=== PATIENT | female | born 1990 | race African-American/Black ===

== ENCOUNTER 2019-06-19 08:19 | Inpatient (IN) ==
[2019-06-19] MEDS ORDERED: FAMOTIDINE 20 MG/2 ML VIAL IV ONE (08:34)
[2019-06-19] MEDS ORDERED: ceFAZolin 2,000 MG in PREMIX 1 EACH IV ONE (08:34)
[2019-06-19] MEDS ORDERED: CITRIC ACID/SODIUM CITRATE 30 ML UDCUP PO ONE (08:34)
[2019-06-19] MEDS ORDERED: LACTATED RINGERS 1,000 ML IV SCH (09:00)
[2019-06-19 09:03] LABS: Basophils % 0.3 % (0.0-0.8); Eosinophils # 0.1 10*3/uL (0.0-0.87); Eosinophils % 0.7 % (0.00-10.9); Hematocrit 34.3 VOL% (35.7-47.0); Hemoglobin 10.8 GM/DL (12.0-16.0); Immature Granulocytes % 2.8 %; Immature Granulocytes Absolute 0.31 #; Lymphocytes % 26.6 % (21.3-54.2); Mean Corpuscular HGB Conc 31.5 GM/DL (32-36); Mean Corpuscular Volume 91.2 FL (87-102); Mean Platelet Volume 10.4 FL (9.6-12.0); Monocytes % 8.2 % (1.7-12.7); Neutrophils % 61.4 % (38.7-73.9); Platelet Count 270 T/CUMM (130-400); Red Blood Count 3.76 MC/CUMM (3.8-5.5); Red Cell Distribution Width 14.2 % (9.3-17.3); White Blood Count 11.2 T/CUMM (4-12)
[2019-06-19] MEDS ORDERED: OXYTOCIN/LR 30 UNIT/1,000 ML BAG IV ONE (09:04)
[2019-06-19] MEDS ORDERED: INFLUENZA VIRUS VACCINE 0.5 ML SYRINGE IM ONE (09:14)
[2019-06-19 09:21] LABS: Alanine Aminotransferase 11 U/L (13-56); Albumin 3.2 G/DL (3.4-5.0); Alkaline Phosphatase 77 U/L (45-117); Aspartate Amino Transferase 12 U/L (0-37); Bilirubin,Total < 0.39 MG/DL (0.2-1.0); Blood Urea Nitrogen 5 MG/DL (7-18); Calcium 9.5 MG/DL (8.5-10.1); Estimated Glom Filtration Rate 156 ML/MIN; Glucose 75 MG/DL (74-106); Osmolality,Calculated 272.5 MOS/KG (273-304)
[2019-06-19] MEDS ORDERED: OXYTOCIN 40 UNIT in LACTATED RINGERS 1,000 ML IV SCH (09:30)
[2019-06-19] MEDS ORDERED: LACTATED RINGERS 1,000 ML IV ONE (11:27)
[2019-06-19 13:16] LABS: Apearance,Urine CLEAR (Clear); Bilirubin,Urine Negative (Negative); Blood, Urine Negative (Negative); Glucose,Urine (UA) Negative (Negative); Ketones,Urine Negative (Negative); Mucus,Urine Occasional /LPF (Occasional); Nitrite,Urine Negative (Negative); Protein,Urine Negative; RBC,Urine <1 /HPF (0-4); Squamous Epithelial Cell,Urine Occasional /HPF (0-10); Urine Color Yellow (Yellow); Urine Specific Gravity 1.013 (1.001-1.035)
[2019-06-19] MEDS ORDERED: BUPIVACAINE 0.5% 50 ML VIAL ONE (14:30)
[2019-06-19] MEDS ORDERED: BUPIVACAINE SPINAL 0.75% 2 ML AMP SPINAL ONE (14:30)
[2019-06-19] MEDS ORDERED: MORPHINE 10 MG/10 ML VIAL ONE (14:31)
[2019-06-19] MEDS ORDERED: ePHEDrine 50 MG/ML AMP ONE (14:32)
[2019-06-19] MEDS ORDERED: DEXAMETHASONE 4 MG/1 ML VIAL ONE (14:32)
[2019-06-19] MEDS ORDERED: PHENYLEPHRINE 1 MG/10 ML SYRINGE IV ONE (14:32)
[2019-06-19] MEDS ORDERED: ONDANSETRON 4 MG/2 ML VIAL ONE (14:32)
[2019-06-19] MEDS ORDERED: ONDANSETRON 4 MG/2 ML VIAL IV PRN (17:36)
[2019-06-19] MEDS: KETOROLAC 30 MG/1 ML VIAL IV SCH ×2 (17:42→23:22)
[2019-06-19 20:06] LABS: Basophils % 0.1 % (0.0-0.8); Hematocrit 27.7 VOL% (35.7-47.0); Hemoglobin 8.8 GM/DL (12.0-16.0); Immature Granulocytes % 0.9 %; Immature Granulocytes Absolute 0.16 #; Lymphocytes # 1.3 10*3/uL (1.4-4.0); Lymphocytes % 7.6 % (21.3-54.2); Mean Corpuscular HGB Conc 31.8 GM/DL (32-36); Mean Corpuscular Volume 89.4 FL (87-102); Mean Platelet Volume 10.2 FL (9.6-12.0); Monocytes % 4.9 % (1.7-12.7); Neutrophils % 86.5 % (38.7-73.9); Platelet Count 230 T/CUMM (130-400); White Blood Count 17.3 T/CUMM (4-12)
[2019-06-19] MEDS: ceFAZolin 1,000 MG in SYRINGE 1 EACH IV SCH (20:21)
[2019-06-20] MEDS: ceFAZolin 1,000 MG in SYRINGE 1 EACH IV SCH (04:12)
[2019-06-20 04:32] LABS: Basophils % 0.3 % (0.0-0.8); Eosinophils % 0.1 % (0.00-10.9); Hematocrit 24.1 VOL% (35.7-47.0); Hemoglobin 7.9 GM/DL (12.0-16.0); Immature Granulocytes Absolute 0.15 #; Lymphocytes # 2.2 10*3/uL (1.4-4.0); Lymphocytes % 14.2 % (21.3-54.2); Mean Corpuscular HGB Conc 32.8 GM/DL (32-36); Mean Corpuscular Volume 88.9 FL (87-102); Mean Platelet Volume 10.4 FL (9.6-12.0); Monocytes % 10.8 % (1.7-12.7); Neutrophils % 73.6 % (38.7-73.9); Platelet Count 215 T/CUMM (130-400); Red Blood Count 2.71 MC/CUMM (3.8-5.5); Red Cell Distribution Width 13.7 % (9.3-17.3); White Blood Count 15.4 T/CUMM (4-12)
[2019-06-20] MEDS: KETOROLAC 30 MG/1 ML VIAL IV SCH ×2 (06:15→18:17)
[2019-06-20] MEDS ORDERED: MAGNESIUM HYDROXIDE SUSP 30 ML UDCUP PO PRN (09:17)
[2019-06-20] MEDS ORDERED: SIMETHICONE CHEW 80 MG TABLET PO PRN (09:19)
[2019-06-20] MEDS: ENOXAPARIN 80 MG/0.8 ML SYRINGE SUBCUT SCH (09:46)
[2019-06-20] MEDS: FERROUS SULFATE 325 MG TABLET PO SCH ×2 (09:46→21:18)
[2019-06-20] MEDS: DOCUSATE SODIUM 100 MG CAPSULE PO SCH ×2 (09:46→21:18)
[2019-06-20] MEDS ORDERED: IBUPROFEN 800 MG TABLET PO PRN (22:35)
[2019-06-21] MEDS: FERROUS SULFATE 325 MG TABLET PO SCH (09:44)
[2019-06-21] MEDS: DOCUSATE SODIUM 100 MG CAPSULE PO SCH (09:44)
[2019-06-21] MEDS: ENOXAPARIN 80 MG/0.8 ML SYRINGE SUBCUT SCH (09:45)
[2019-06-21 16:19] VITALS: BP 106/62
== END 2019-06-21 18:35 | disposition home or self-care (01) | DRG 540 ==
LOC: N.LD 08:19 → N.OB 15:45
PROVIDERS: ADMIT Obstetrics & Gynecology; ATTEND Obstetrics & Gynecology